=== PATIENT | female | born 1960 | race Caucasian/White ===

== ENCOUNTER 2018-05-14 13:54 | Observation (INO) | payer MEDICAID ==
[~2018-05-14] VITALS: Ht 160 cm; Wt 81.8 kg
[~2018-05-14 13:54] MED LIST: ACET-890 PO; ASPI-1071 PO; BUSP5TAB3 PO; DOCU-28 PO; IBUP-24 PO; LORA10TA2 PO; ONDA4TAB12 PO; OXYC-134 PO
[2018-05-14] MEDS ORDERED: aspirin 325mg tablet PO ONE (14:30)
[2018-05-14 14:33] LABS: BASOPHILS % (AUTO) 0.3 % (0-1); EOSINOPHILS # (AUTO) 0.2 X10'3 (0-0.9); EOSINOPHILS % (AUTO) 2.8 % (0-6); HEMATOCRIT 43.2 % (35.0-45.0); HEMOGLOBIN 14.7 g/dl (12.0-16.0); LYMPHOCYTES # (AUTO) 2.6 X10'3 (1.1-4.8); LYMPHOCYTES % (AUTO) 30.5 % (21-51); MEAN CORPUSCULAR HEMOGLOBIN 31.4 PG (27.0-31.0); MEAN CORPUSCULAR VOLUME 92.4 FL (78-98); MEAN PLATELET VOLUME 7.7 FL (7.4-10.4); MONOCYTES # (AUTO) 0.4 X10'3 (0-0.9); MONOCYTES % (AUTO) 4.9 % (2-12); NEUTROPHILS # (AUTO) 5.3 X10'3 (1.8-7.7); NEUTROPHILS % (AUTO) 61.5 % (42-75); PLATELET COUNT 295 X10'3 (140-440); RED BLOOD COUNT 4.67 X10'6 (4.20-5.60); RED CELL DISTRIBUTION WIDTH 13.6 % (11.5-14.5); WHITE BLOOD COUNT 8.6 X10'3 (4.5-11.0)
[2018-05-14 14:44] LABS: PARTIAL THROMBOPLASTIN TIME 27 SECONDS (22-32); PROTHROMBIN TIME 9.9 SECONDS (9.0-12.0)
[2018-05-14 14:52] LABS: ALANINE AMINOTRANSFERASE 23 U/L (12-78); ALBUMIN 3.7 G/DL (3.4-5.0); ALBUMIN/GLOBULIN RATIO 0.9 (1.1-1.5); ALKALINE PHOSPHATASE 85 IU/L (46-116); ANION GAP 8 (8-16); ASPARTATE AMINO TRANSFERASE 18 U/L (10-37); BILIRUBIN,TOTAL 0.3 MG/DL (0.1-1.0); BLOOD UREA NITROGEN 8 MG/DL (7-18); BUN/CREATININE RATIO 9.1 (6.6-38.0); CALCIUM 8.9 MG/DL (8.5-10.1); CHLORIDE 105 MMOL/L (99-107); CREATININE 0.88 MG/DL (0.40-0.90); GLUCOSE 94 MG/DL (70-104); POTASSIUM 4.4 MMOL/L (3.5-5.1); SODIUM 140 MMOL/L (135-145); TOTAL CARBON DIOXIDE 27.3 MMOL/L (24-32); TOTAL PROTEIN 7.7 G/DL (6.4-8.2); eGFR 66 ML/MIN
[2018-05-14 14:54] LABS: TROPONIN I < 0.04 NG/ML (0.0-0.05)
[2018-05-14] MEDS ORDERED: SERT100T10 PO (15:39)
[2018-05-14] MEDS ORDERED: GABA-530 PO (15:40)
[2018-05-14] MEDS ORDERED: VITA1TAB20 PO (15:42)
[2018-05-14] MEDS ORDERED: CHOL100046 PO (15:42)
[2018-05-14] MEDS ORDERED: PRAZ5CAP PO (15:42)
[2018-05-14] MEDS ORDERED: ASPI-12 PO (15:43)
[2018-05-14] MEDS ORDERED: ASPI-144 PO (15:44)
[2018-05-14] MEDS ORDERED: mag hydrox/Alum hydrox/simeth 30ml oral suspension PO PRN (20:05)
[2018-05-14] MEDS ORDERED: ondansetron/PF 4mg/2ml inj IV PRN (20:05)
[2018-05-14] MEDS ORDERED: HYDROcodone/acetaminophen 5mg/325mg tablet PO PRN (20:05)
[2018-05-14] MEDS ORDERED: magnesium hydroxide 30ml (MOM) UD suspension PO PRN (20:05)
[2018-05-14] MEDS ORDERED: HYDROcodone/acetaminophen 10/325mg tab PO PRN (20:05)
[2018-05-14] MEDS ORDERED: acetaminophen 325mg tablet PO PRN ×2 (20:05)
[2018-05-14 21:00] VITALS: BP 114/41
[2018-05-14 21:00] LABS: CHOL/HDL RATIO 3.4 (0.00-4.99); CHOLESTEROL 205 MG/DL (0-200); HDL CHOLESTEROL 60 MG/DL (35-60); LDL CHOLESTEROL 132 MG/DL (50-100); TRIGLYCERIDES 72 MG/DL (20-135)
[2018-05-14] MEDS ORDERED: prazosin 5mg capsule PO SCH (21:00)
[2018-05-14] MEDS ORDERED: sertraline 50mg tablet PO SCH (21:00)
[2018-05-14 22:36] VITALS: BP 102/63
[2018-05-15 01:00] VITALS: BP 101/49
[2018-05-15 05:00] VITALS: BP 114/55
[2018-05-15 06:37] LABS: BASOPHILS % (AUTO) 0.6 % (0-1); EOSINOPHILS # (AUTO) 0.2 X10'3 (0-0.9); EOSINOPHILS % (AUTO) 3.5 % (0-6); HEMATOCRIT 39.9 % (35.0-45.0); HEMOGLOBIN 13.8 g/dl (12.0-16.0); LYMPHOCYTES # (AUTO) 2.3 X10'3 (1.1-4.8); LYMPHOCYTES % (AUTO) 34.7 % (21-51); MEAN CORPUSCULAR HEMOGLOBIN 31.5 PG (27.0-31.0); MEAN CORPUSCULAR HGB CONC 34.5 % (33.0-36.5); MEAN CORPUSCULAR VOLUME 91.4 FL (78-98); MEAN PLATELET VOLUME 7.9 FL (7.4-10.4); MONOCYTES # (AUTO) 0.5 X10'3 (0-0.9); MONOCYTES % (AUTO) 7.6 % (2-12); NEUTROPHILS # (AUTO) 3.6 X10'3 (1.8-7.7); NEUTROPHILS % (AUTO) 53.6 % (42-75); PLATELET COUNT 265 X10'3 (140-440); RED BLOOD COUNT 4.36 X10'6 (4.20-5.60); RED CELL DISTRIBUTION WIDTH 13.5 % (11.5-14.5); WHITE BLOOD COUNT 6.7 X10'3 (4.5-11.0)
[2018-05-15 06:39] LABS: ALBUMIN 3.2 G/DL (3.4-5.0); ANION GAP 5 (8-16); BLOOD UREA NITROGEN 11 MG/DL (7-18); BUN/CREATININE RATIO 12.4 (6.6-38.0); CALCIUM 9.2 MG/DL (8.5-10.1); CHLORIDE 106 MMOL/L (99-107); CREATININE 0.89 MG/DL (0.40-0.90); GLUCOSE 94 MG/DL (70-104); POTASSIUM 4.3 MMOL/L (3.5-5.1); SODIUM 140 MMOL/L (135-145); TOTAL CARBON DIOXIDE 29.5 MMOL/L (24-32); eGFR 65 ML/MIN
[2018-05-15] MEDS ORDERED: vitamin B comp w/Vit. C tab 1 TAB TABLET PO SCH (08:00)
[2018-05-15] MEDS ORDERED: vitamin D (cholecalciferol) 1,000 unit tablet PO SCH (08:00)
[2018-05-15] MEDS ORDERED: aspirin/acetaminophen/caffeine tablet PO SCH (08:00)
[2018-05-15 08:43] VITALS: BP_SYST 106; BP_SYST 116; BP_SYST 120; BP_DIAS 53; BP_DIAS 56
[2018-05-15 08:43] LABS: CHOL/HDL RATIO 3.7 (0.00-4.99); CHOLESTEROL 188 MG/DL (0-200); HDL CHOLESTEROL 51 MG/DL (35-60); LDL CHOLESTEROL 124 MG/DL (50-100); TRIGLYCERIDES 70 MG/DL (20-135)
== END 2018-05-15 15:30 | disposition home or self-care (01) ==
LOC: ER 13:54 → ED HOLD 20:04 → ORTHO 4S 21:10
PROVIDERS: ADMIT Hospitalist; ATTEND Hospitalist
DX: R53.1 Weakness (principal); F17.200 Nicotine dependence, unspecified, uncomplicated; R47.81 Slurred speech; M54.9 Dorsalgia, unspecified; G89.29 Other chronic pain; Z86.73 Personal history of transient ischemic attack (TIA), and cerebral infarction without residual deficits
CPT/HCPCS: 36415; 70450; 70544; 70551; 71045; 80048; 80053; 80061; 82948; 84484; 85025; 85610; 85730; 87070; 92616; 93005; 93306; 93880; 97110; 97116; 97161; 99285; G0378